=== PATIENT | female | born 1995 ===

== ENCOUNTER 2018-08-14 18:05 | Inpatient (IN) | payer SELFPAY ==
[2018-08-14 18:16] VITALS: O2SAT 98
--- NOTE | 2018-08-14 18:33 | C.PDOC ---
History Of Present Illness 23 y/o female pt with hx of depression presents to the ER c/o suicidal ideation. Pt was seen and eval by [facility]. Pt was then transferred here. Pt reportedly took aspirin and ibuprofen. Case was cleared by poison control ESC[employer] SERVICE ATTENDANT today. At this time, pt denies any complaints. Time Seen by Provider: 08/14/18 18:08 Chief Complaint (Nursing): Psychiatric Evaluation History Per: Patient History/Exam Limitations: no limitations Onset/Duration Of Symptoms: Hrs Current Symptoms Are (Timing): Still Present Suicide/Self Injury Attempted (Context): Ingestion Associated Symptoms: Depression, Suicidal Thoughts Past Medical History Reviewed: Historical Data, Nursing Documentation, Vital Signs Vital Signs: Last Vital Signs Temp 98.3 F 08/14/18 18:10 Pulse 90 08/14/18 18:10 Resp 18 08/14/18 18:10 BP 119/85 08/14/18 18:10 Pulse Ox 98 08/14/18 18:10 Family History: States: No Known Family Hx - Social History Hx Alcohol Use: No Hx Substance Use: No Review Of Systems Except As Marked, All Systems Reviewed And Found Negative. Constitutional: Positive for: Other (hx of depression ) Psych: Positive for: Suicidal ideation Physical Exam - Physical Exam Appears: Non-toxic, No Acute Distress Skin: Warm, Dry Head: Normacephalic Eye(s): bilateral: Normal Inspection Nose: Normal Oral Mucosa: Moist Throat: Normal, No Erythema, No Exudate Chest: Symmetrical Cardiovascular: Rhythm Regular Respiratory: Normal Breath Sounds, No Rales, No Rhonchi, No Wheezing Gastrointestinal/Abdominal: Soft, No Tenderness Neurological/Psych: Oriented x3, Normal Speech, Normal Cognition, Normal Motor, Normal Sensation ED Course And Treatment O2 Sat by Pulse Oximetry: 98 (RA) Pulse Ox Interpretation: Normal Disposition - Disposition Disposition: HOSPITALIZED Disposition Time: 18:00 Condition: STABLE - Clinical Impression Clinical Impression: Depression - Scribe Statement The provider has reviewed the documentation as recorded by the Heber Serna Do Provider Attestation: All medical record entries made by the Scribe were at my direction and personally dictated by me. I have reviewed the chart and agree that the record accurately reflects my personal performance of the history, physical exam, medical decision making, and the department course for this patient. I have also personally directed, reviewed, and agree with the discharge instructions and disposition. Decision To Admit - Pt Status Changed To: Hospital Disposition Of: Inpatient - Admit Certification Admit to Inpatient:: After my assessment, the patient will require hospitalization for at least two midnights. This is because of the severity of symptoms shown, intensity of services needed, and/or the medical risk in this patient being treated as an outpatient. - InPatient: Physician Admission Certification: I certify that this patient requires 2 or more midnights of care for the following reason:: needs inpt pysch - . Bed Request Type: Psychiatry Admitting Physician: Charmaine Ruth Patient Diagnosis: Depression
--- NOTE | 2018-08-14 20:42 | PCM.BM ---
<Barrett Bahena - Last Filed: 08/14/18 20:39> Treatment assets and liabiliti Patient Assests: cooperative, motivated, ADL independent, physically healthy, good support system, negotiates basic needs Patient Liabilities: relationship conflicts - Milieu Protocol Maintain good personal hygiene: daily Encourage regular showers, daily Remind patient to perform daily oral care, daily Assist patient to perform ADL's Conduct patient checks and document Observation sheet: Q15 minutes Maintain personal safety: every shift Educate patient to report safety concerns to staff, every shift Monitor environment for contraband/sharps Medication safety: Monitor for expected outcome, potential side effects: every shift, Assess barriers to learning: every shift, Assess readiness for medication education: every shift <Kelsey Eason - Last Filed: 08/16/18 11:37> Family Contact Family involvement: Patient does not wish Family/SO involvement Family contact: Patient declines to allow family contact at present - Goals for Treatment Patient goals for treatment: "I want to go to an outpatient program." Discharge/Continuing Care - Education Needs Education Needs: Patient Medication, Patient Diagnosis/Disease Process, Patient Coping Skills, Patient Placement options, Patient Community resources - Discharge Discharge Criteria: Free of Suicidal thoughts, Normal sleep pattern, Ability to care for self, Reduction of target symptoms Discharge to:: Home - Treatment Team Participation Discussed with Family/SO: No Was Patient/Family/SO present at Treatment Team Meeting: Yes
--- NOTE | 2018-08-15 12:00 | PCM.PSYCH ---
Initial Psychiatric Evaluation - Initial Psychiatric Evaluation Type of Admission: Voluntary Legal Status: Capacity Chief Complaint (in patient's own words): I was feeling depressed and suicidal. History of Present Illness and Precipitating Events: Pt is a 33 years old female, who currently works full-time and currently lives with her boyfriend, came to the ED with depressed mood, suicidal ideation and suicide attempt. Patient denies any past history of any inpatient psychiatric hospitalizations and she denies any history of follow-up with a psychiatrist. Patient reports of multiple heated arguments with her boyfriend recently. As per the patient she had a serious verbal argument with him on Thursday night. She became increasingly depressed and suicidal. She took 15 pills of aspirin and Motrin her boyfriend. However, family called the police and patient was escorted to the . Today patient was transferred to the [facility] for the continuation of care. She reports depressed mood, at times feelings of hopelessness and helplessness. She also reports at times poor sleep and poor appetite. She denies any auditory or visual hallucinations or any paranoia. She denies any drinking or any substance abuse. Past medical history None reported Current Medications: Active Medications Generic Name Dose Route Start Last Admin Trade Name Freq PRN Reason Stop Dose Admin Hydroxyzine HCl 25 mg 08/14/18 20:17 Atarax PO Q6 PRN Anxiety Influenza Virus Vaccine 60 mcg 08/16/18 10:00 Flucelvax Quad 7842-2775 Syr IM 08/16/18 10:01 .ONCE ONE Pneumococcal Polyvalent Vaccine 0.5 ml 08/16/18 10:00 Pneumovax 23 Vaccine IM 08/16/18 10:01 .ONCE ONE Trazodone HCl 50 mg 08/14/18 22:00 08/14/18 23:06 Desyrel PO Not Given HS [facility] Past Psychiatric History - Past Psychiatric History Previous Treatment History: None Pertinent Medical Hx (Current Medical&Sleep Prob, Allergies): Allergies Allergy/AdvReac Type Severity Reaction Status Date / Time No Known Allergies Allergy Unverified 08/14/18 18:14 No Known Home Med 08/14/18 Review of Systems - Review of Systems All systems: reviewed and no additional remarkable complaints except - Psychiatric Psychiatric: Anxiety, Irritability, Suicidal Ideation Mental Status Examination - Personal Presentation Personal Presentation: Looks stated age - Affect Affect: Constricted - Motor Activity Motor Activity: Calm - Reliability in Providing Information Reliability in Providing Information: Fair - Speech Speech: Organized - Mood Mood: Depressed, Anxious - Formal Thought Process Formal Thought Process: No Impairment - Obsessions/Compulsions Obsessions: No Compulsions: No - Cognitive Functions Orientation: Person, Place, Situation, Time Sensorium: Alert Attention/Concentration: Attentive Abstract Thinking: Clark Estimate of Intelligence: Below average Judgement: Imparied, as evidence by: Poor judgement, Imparied, as evidence by: Lack of insight into illness - Risk Risk: Suicidal, Diminished functioning - Strength & Assets Inventory Strength & Assets Inventory: Family support DSM 5 DX - DSM 5 DSM 5 Diagnosis: Major depressive disorder single episode severe without psychotic features - Recommended/Plan of Treatment Treatment Recommendations and Plan of Treatment: Major depressive disorder single episode severe without psychotic features -CBT -Psychoeducation -Supportive therapy and group therapy -Trazodone for insomnia -Zoloft for depression -Hydroxyzine foe anxiety
[2018-08-16] MEDS ORDERED: Pneumococcal 23-Valent Vaccine IM ONE (10:00)
[2018-08-16] MEDS ORDERED: Influenza Vaccine 60 mcg/0.5 mL SYR (4YR UP) IM ONE (10:00)
--- NOTE | 2018-08-16 23:42 | PCM.PYCHPN ---
Psychiatric Progress Note - Psychiatric Progress Note Patient seen today, length of contact: 15 min Patient Chief Complaint: I am feeling much better. Problems Identified/Issues Discussed: Patient was seen and evaluated, chart reviewed and discussed with staff. As per staff, patient reports improvement in her mood and she signed a 48 hours notice. Patient reports some improvement in the feelings of hopelessness and helplessness. Patient reports some improvement in her sleep and appetite. She denies any auditory or visual hallucinations or any paranoia. Symptoms are improving gradually but she needs to stay longer for further stabilization. Supportive therapy was given Medication Change: Yes Medical Record Reviewed: Yes Mental Status Examination - Cognitive Function Orientation: Person, Place, Situation, Time Memory: Intact Attention: WNL Concentration: Poor Association: WNL Fund of Knowledge: Poor - Mood Mood: Depressed, Anxious - Affect Affect: Constricted - Speech Speech: Soft - Formal Thought Process Formal Thought Process: No Impairment - Suicidal Ideation Suicidal Ideation: No - Homicidal Ideation Homicidal Ideation: No Goal/Treatment Plan - Goal/Treatment Plan Need for Continued Stay: Remain at risks for inpatient hospitalization Progress Toward Problem(s) and Goals/Treatment Plan: Major depressive disorder single episode severe without psychotic features -CBT -Psychoeducation -Supportive therapy and group therapy -Trazodone for insomnia -Zoloft for depression -Hydroxyzine foe anxiety - Smoking Cessation Smoking Cessation Initiated: No
--- NOTE | 2018-08-17 10:14 | PCM.PYCHDC ---
Mental Status Examination - Mental Status Examination Orientation: Person, Place, Situation, Time Memory: Intact Mood: Neutral Affect: Constricted Speech: Soft Attention: WNL Concentration: WNL Association: WNL Fund of Knowledge: WNL Formal Thought Process: No Impairment Description of patient's judgement and insight: good, fair Psychotic Thoughts and Behaviors: denies any AVH Suicidal Ideation: No Current Homicidal Ideation?: No Discharge Summary - Discharge Note Reason for Hospitalization: Pt is a 33 years old female, who currently works full-time and currently lives with her boyfriend, came to the ED with depressed mood, suicidal ideation and suicide attempt. Patient denies any past history of any inpatient psychiatric hospitalizations and she denies any history of follow-up with a psychiatrist. Patient reports of multiple heated arguments with her boyfriend recently. As per the patient she had a serious verbal argument with him on Thursday. She became increasingly depressed and suicidal. She took 15 pills of aspirin and Motrin her boyfriend. However, family called the police and patient was escorted to the [facility]. Today patient was transferred to the [facility] for the continuation of care. She reports depressed mood, at times feelings of hopelessness and helplessness. She also reports at times poor sleep and poor appetite. She denies any auditory or visual hallucinations or any paranoia. She denies any drinking or any substance abuse. Consultations:: List each consultation separately and include: 1. Reason for request. 2. Findings. 3. Follow-up Summary of Hospital Course include:: 1. Description of specific treatment plan utilized for patients during their course of treatmen. 2. Summarize the time- course for resolution of acute symptoms and/or regressed behaviors. 3. Describe issues identified and worked on during hospitalization. 4. Describe medication utilized. 5. Describe medical problems identified and treated. 6. Reassessment of suicide risk Summary of Hospital Course: Pt is a 33 years old female, who currently works full-time and currently lives with her boyfriend, came to the ED with depressed mood, suicidal ideation and suicide attempt. Patient denies any past history of any inpatient psychiatric hospitalizations and she denies any history of follow-up with a psychiatrist. Patient reports of multiple heated arguments with her boyfriend recently. As per the patient she had a serious verbal argument with him on Thursday. She became increasingly depressed and suicidal. She took 15 pills of aspirin and Motrin h er boyfriend. However, family called the police and patient was escorted to the [facility]. Today patient was transferred to the [facility] for the continuation of care. She reports depressed mood, at times feelings of hopelessness and helplessness. She also reports at times poor sleep and poor appetite. She denies any auditory or visual hallucinations or any paranoia. She denies any drinking or any substance abuse. Past medical history None reported - Final Diagnosis (DSM 5) Condition upon Discharge: STABLE DSM 5: Major depressive disorder single episode severe without psychotic features Disposition: HOME/ ROUTINE Follow-up Treatment Plan: Major depressive disorder single episode severe without psychotic features -CBT -Psychoeducation -Supportive therapy and group therapy -Trazodone for insomnia -Zoloft for depression -Hydroxyzine foe anxiety Prescriptions/Medication Reconciliation: Sertraline [Zoloft] 25 mg PO DAILY #14 tab traZODone [Desyrel] 50 mg PO HS #14 tab - Smoking Cessation Smoking Cessation Medication prescribed: No - Antipsychotic Medications Pt discharged on 2 or more routine antipsychotic medications: No
[2018-08-17 10:19] VITALS: BP 104/74; PULSE 99; RESP 19; TEMP 98.4
== END 2018-08-17 11:48 | disposition home or self-care (01) | DRG 885 ==
LOC: C.ER 18:05 → C.5E 18:28
PROVIDERS: ADMIT Psychiatry & Neurology Psychiatry; ATTEND Psychiatry & Neurology Psychiatry
PROC: GZHZZZZ Group Psychotherapy (ICD-10-PCS; principal; 2018-08-14)
PROC: GZ56ZZZ Individual Psychotherapy, Supportive (ICD-10-PCS; 2018-08-14)
DX: F32.2 Major depressive disorder, single episode, severe without psychotic features (principal); R45.851 Suicidal ideations; F41.9 Anxiety disorder, unspecified; G47.00 Insomnia, unspecified